=== PATIENT | male | born 1930 | race Asian ===

== ENCOUNTER 2018-11-14 16:02 | Inpatient (IN) | payer BC ==
[2018-11-14 16:32] LABS: ADD MAN DIFF? NO
[2018-11-14 16:34] LABS: WHITE BLOOD COUNT 5.2 10^3/ul (4.8-10.8)
[2018-11-14 16:34] LABS: BASOPHILS % 0.8 % (0.0-2.0); EOSINOPHILS # 0.2 10^3/ul (0.0-0.5); EOSINOPHILS % 3.3 % (0.0-7.0); HEMATOCRIT 34.3 % (42.0-52.0); HEMOGLOBIN 10.7 g/dl (14.0-18.0); MEAN CORPUSCULAR HEMOGLOBIN 23.4 pg (29.0-33.0); MEAN CORPUSCULAR HGB CONC 31.2 g/dl (32.0-37.0); MEAN CORPUSCULAR VOLUME 75.1 fl (82.0-101.0); MEAN PLATELET VOLUME 9.5 fl (7.4-10.4); MONOCYTE # 0.5 10^3/ul (0.3-0.9); MONOCYTES % 8.9 % (0.0-11.0); NEUTROPHIL # 3.5 10^3/ul (1.6-7.5); NEUTROPHILS % 67.6 % (39.0-77.0); PLATELET COUNT 291 10^3/UL (140-415); RED BLOOD COUNT 4.57 10^6/ul (4.70-6.10)
[2018-11-14 16:54] LABS: ANION GAP 6 (5-13); BLOOD UREA NITROGEN 16 mg/dl (7-20); CALCIUM 9.7 mg/dl (8.4-10.2); CARBON DIOXIDE 31 mmol/L (21-31); CHLORIDE 102 mmol/L (97-110); CREATININE 0.97 mg/dl (0.61-1.24); GLUCOSE 211 mg/dl (70-220); POTASSIUM 4.3 mmol/L (3.5-5.1); SODIUM 139 mmol/L (135-144)
[2018-11-14 16:56] LABS: ETHANOL < 10.0 mg/dl (0-0)
[2018-11-14 17:06] LABS: TROPONIN-I 0.054 ng/ml (0.000-0.120)
[2018-11-14 17:08] LABS: INR 0.97
[2018-11-14] MEDS: ASPIRIN 325 MG TAB PO (18:44)
[2018-11-14] MEDS ORDERED: ACETAMINOPHEN 325 MG TAB PO ×2 (19:00→19:30)
[2018-11-14] MEDS ORDERED: ONDANSETRON 4 MG INJ IV ×2 (19:00→19:30)
[2018-11-14] MEDS ORDERED: SENNA TAB PO (19:30)
[2018-11-14] MEDS ORDERED: NACL 0.9% 3 ML SYG IV (19:30)
[2018-11-14] MEDS ORDERED: DEXTROSE 50% 50 ML SYRINGE IV ×2 (20:30)
[2018-11-14] MEDS ORDERED: GLUCOSE GEL 15 GRAM TUBE PO ×2 (20:30)
[2018-11-14] MEDS ORDERED: GLUCOSE GEL 15 GRAM TUBE BUCCAL (20:30)
[2018-11-14] MEDS ORDERED: GLUCAGON 1 MG INJ IM (20:30)
[2018-11-14] MEDS: ACCU-CHEK XX (21:00)
[2018-11-14] MEDS: DORZOLAMIDE/TIMOLOL 10 ML OPH BOTH EYES (21:52)
[2018-11-14] MEDS: ATORVASTATIN 20 MG TAB PO (21:52)
[2018-11-14] MEDS: hydrALAzine 20 MG INJ IV (21:52)
[2018-11-14 22:53] LABS: TROPONIN-I 0.064 ng/ml (0.000-0.120)
[2018-11-15] MEDS: PANTOPRAZOLE (EC) 40 MG TAB PO (05:25)
[2018-11-15 05:53] LABS: ADD MAN DIFF? NO
[2018-11-15 06:01] LABS: BASOPHIL # 0.1 10^3/ul (0.0-0.1); BASOPHILS % 0.8 % (0.0-2.0); EOSINOPHILS # 0.2 10^3/ul (0.0-0.5); EOSINOPHILS % 2.8 % (0.0-7.0); HEMATOCRIT 33.5 % (42.0-52.0); HEMOGLOBIN 10.7 g/dl (14.0-18.0); LYMPHOCYTES # 1.2 10^3/ul (0.8-2.9); LYMPHOCYTES % 19.3 % (15.0-51.0); MEAN CORPUSCULAR HEMOGLOBIN 23.5 pg (29.0-33.0); MEAN CORPUSCULAR HGB CONC 31.9 g/dl (32.0-37.0); MEAN CORPUSCULAR VOLUME 73.5 fl (82.0-101.0); MEAN PLATELET VOLUME 9.7 fl (7.4-10.4); MONOCYTE # 0.5 10^3/ul (0.3-0.9); MONOCYTES % 8.7 % (0.0-11.0); NEUTROPHIL # 4.1 10^3/ul (1.6-7.5); NEUTROPHILS % 68.1 % (39.0-77.0); PLATELET COUNT 272 10^3/UL (140-415); RED BLOOD COUNT 4.56 10^6/ul (4.70-6.10); RED CELL DISTRIBUTION WIDTH 17.2 % (11.5-14.5)
[2018-11-15 06:34] LABS: ALANINE AMINOTRANSFERASE 24 IU/L (13-69); ALBUMIN 3.7 g/dl (3.3-4.9); ALBUMIN/GLOBULIN RATIO 1.48; ALKALINE PHOSPHATASE 91 IU/L (42-121); ANION GAP 8 (5-13); ASPARTATE AMINO TRANSFERASE 18 IU/L (15-46); BILIRUBIN,INDIRECT 0.3 mg/dl (0-1.1); BILIRUBIN,TOTAL 0.3 mg/dl (0.2-1.3); BLOOD UREA NITROGEN 17 mg/dl (7-20); CALCIUM 9.5 mg/dl (8.4-10.2); CARBON DIOXIDE 33 mmol/L (21-31); CHLORIDE 102 mmol/L (97-110); CHOL/HDL RATIO 3.3 RATIO; CHOLESTEROL 163 mg/dl (100-200); CREATININE 0.92 mg/dl (0.61-1.24); GLUCOSE 224 mg/dl (70-220); HDL CHOLESTEROL 48 mg/dl (31-75); LDL CHOLESTEROL,CALCULATED 83 mg/dl; PHOSPHORUS 3.6 mg/dl (2.5-4.9); POTASSIUM 4.1 mmol/L (3.5-5.1); SODIUM 143 mmol/L (135-144); TOTAL PROTEIN 6.2 g/dl (6.1-8.1); TRIGLYCERIDES 161 mg/dl (0-149)
[2018-11-15 06:34] LABS: TROPONIN-I 0.065 ng/ml (0.000-0.120)
[2018-11-15 06:35] LABS: ADD UMIC YES; UR ASCORBIC ACID NEGATIVE (NEGATIVE); UR BILIRUBIN (Dip) NEGATIVE (NEGATIVE); UR BLOOD (Dip) 1+ mg/dL (NEGATIVE); UR CLARITY CLEAR (CLEAR); UR COLOR YELLOW (YELLOW); UR GLUCOSE (Dip) 1+ mg/dL (NEGATIVE); UR KETONES (Dip) NEGATIVE (NEGATIVE); UR LEUKOCYTE ESTERASE (Dip) NEGATIVE Leu/ul (NEGATIVE); UR NITRITE (Dip) NEGATIVE (NEGATIVE); UR RBC 1 /HPF (0-5); UR TOTAL PROTEIN (Dip) NEGATIVE (NEGATIVE); UR UROBILINOGEN (Dip) NEGATIVE (NEGATIVE); UR WBC 0 /HPF (0-5)
[2018-11-15 07:02] LABS: AMPHETAMINE/METHAMPHETAMINE Negative (NEGATIVE); BARBITURATES Negative (NEGATIVE); BENZODIAZEPINES Negative (NEGATIVE); CANNABINOIDS Negative (NEGATIVE); COCAINE Negative (NEGATIVE); OPIATES Negative (NEGATIVE)
[2018-11-15 07:08] LABS: HEMOGLOBIN A1C 9.9 % (0-5.9)
[2018-11-15] MEDS: ACCU-CHEK XX ×4 (07:40→21:00)
[2018-11-15] MEDS: metFORMIN 500 MG TAB PO ×2 (07:55→17:18)
[2018-11-15] MEDS: CITALOPRAM 20 MG TAB PO (08:08)
[2018-11-15] MEDS: METOPROLOL (XL) 100 MG TAB PO (08:09)
[2018-11-15] MEDS: TRIAMTERENE/HCTZ (37.5/25) TAB PO (08:10)
[2018-11-15] MEDS: DORZOLAMIDE/TIMOLOL 10 ML OPH BOTH EYES ×2 (08:11→22:24)
[2018-11-15] MEDS: BRIMONIDINE 0.1% 5 ML OPH BOTH EYES (08:11)
[2018-11-15] MEDS: DONEPEZIL 5 MG TAB PO (13:54)
[2018-11-15] MEDS: MEMANTINE 5 MG TAB PO (13:54)
[2018-11-15 17:20] LABS: IRON 29 ug/dl (35-150)
[2018-11-15 17:29] LABS: % IRON SATURATION 8 % SAT (22-52); TOTAL IRON BINDING CAPACITY 379 ug/dl (241-421)
[2018-11-15] MEDS: ATORVASTATIN 20 MG TAB PO (22:23)
[2018-11-16] MEDS: PANTOPRAZOLE (EC) 40 MG TAB PO (05:38)
[2018-11-16] MEDS: ACCU-CHEK XX ×4 (07:51→21:00)
[2018-11-16] MEDS: metFORMIN 500 MG TAB PO ×2 (07:53→17:04)
[2018-11-16] MEDS: MEMANTINE 5 MG TAB PO (08:10)
[2018-11-16] MEDS: DONEPEZIL 5 MG TAB PO (08:10)
[2018-11-16] MEDS: CITALOPRAM 20 MG TAB PO (08:11)
[2018-11-16] MEDS: DORZOLAMIDE/TIMOLOL 10 ML OPH BOTH EYES ×2 (08:12→20:59)
[2018-11-16] MEDS: BRIMONIDINE 0.1% 5 ML OPH BOTH EYES (08:12)
[2018-11-16] MEDS: METOPROLOL (XL) 100 MG TAB PO (08:14)
[2018-11-16] MEDS: TRIAMTERENE/HCTZ (37.5/25) TAB PO (08:14)
[2018-11-16] MEDS: INSULIN GLARGINE [LANTus] (100 UNITS/ML) SYG SC (12:06)
[2018-11-16] MEDS: ATORVASTATIN 20 MG TAB PO (20:59)
[2018-11-17] MEDS: PANTOPRAZOLE (EC) 40 MG TAB PO (05:22)
[2018-11-17] MEDS: ACCU-CHEK XX ×4 (07:31→19:59)
[2018-11-17] MEDS: metFORMIN 500 MG TAB PO ×2 (07:32→17:10)
[2018-11-17] MEDS: INSULIN GLARGINE [LANTus] (100 UNITS/ML) SYG SC (07:37)
[2018-11-17] MEDS: BRIMONIDINE 0.1% 5 ML OPH BOTH EYES (08:24)
[2018-11-17] MEDS: DORZOLAMIDE/TIMOLOL 10 ML OPH BOTH EYES ×2 (08:25→20:00)
[2018-11-17] MEDS: METOPROLOL (XL) 100 MG TAB PO (08:25)
[2018-11-17] MEDS: TRIAMTERENE/HCTZ (37.5/25) TAB PO (08:26)
[2018-11-17] MEDS: CITALOPRAM 20 MG TAB PO (08:26)
[2018-11-17] MEDS: DONEPEZIL 5 MG TAB PO (08:26)
[2018-11-17] MEDS: MEMANTINE 5 MG TAB PO (08:26)
[2018-11-17] MEDS: ATORVASTATIN 20 MG TAB PO (20:00)
[2018-11-18] MEDS: PANTOPRAZOLE (EC) 40 MG TAB PO (05:29)
[2018-11-18] MEDS: ACCU-CHEK XX ×4 (07:00→22:05)
[2018-11-18] MEDS: TRIAMTERENE/HCTZ (37.5/25) TAB PO (08:55)
[2018-11-18] MEDS: DONEPEZIL 5 MG TAB PO (08:56)
[2018-11-18] MEDS: MEMANTINE 5 MG TAB PO (08:56)
[2018-11-18] MEDS: CITALOPRAM 20 MG TAB PO (08:56)
[2018-11-18] MEDS: METOPROLOL (XL) 100 MG TAB PO (08:56)
[2018-11-18] MEDS: metFORMIN 500 MG TAB PO ×2 (08:57→17:36)
[2018-11-18] MEDS: DORZOLAMIDE/TIMOLOL 10 ML OPH BOTH EYES ×2 (09:24→22:05)
[2018-11-18] MEDS: INSULIN GLARGINE [LANTus] (100 UNITS/ML) SYG SC (09:24)
[2018-11-18] MEDS: BRIMONIDINE 0.1% 5 ML OPH BOTH EYES (09:24)
[2018-11-18] MEDS: ATORVASTATIN 20 MG TAB PO (22:05)
[2018-11-19] MEDS: PANTOPRAZOLE (EC) 40 MG TAB PO (05:29)
[2018-11-19] MEDS: ACCU-CHEK XX ×4 (07:00→20:04)
[2018-11-19] MEDS: metFORMIN 500 MG TAB PO ×2 (09:02→18:00)
[2018-11-19] MEDS: TRIAMTERENE/HCTZ (37.5/25) TAB PO (09:03)
[2018-11-19] MEDS: DORZOLAMIDE/TIMOLOL 10 ML OPH BOTH EYES ×2 (09:03→20:04)
[2018-11-19] MEDS: BRIMONIDINE 0.1% 5 ML OPH BOTH EYES (09:03)
[2018-11-19] MEDS: INSULIN GLARGINE [LANTus] (100 UNITS/ML) SYG SC (09:06)
[2018-11-19] MEDS: DONEPEZIL 5 MG TAB PO (10:59)
[2018-11-19] MEDS: MEMANTINE 5 MG TAB PO (10:59)
[2018-11-19] MEDS: CITALOPRAM 20 MG TAB PO (10:59)
[2018-11-19] MEDS: METOPROLOL (XL) 100 MG TAB PO (11:00)
[2018-11-19] MEDS: ATORVASTATIN 20 MG TAB PO (20:04)
[2018-11-20] MEDS: PANTOPRAZOLE (EC) 40 MG TAB PO (06:10)
[2018-11-20] MEDS: ACCU-CHEK XX ×4 (07:00→21:02)
[2018-11-20] MEDS: CITALOPRAM 20 MG TAB PO (08:33)
[2018-11-20] MEDS: metFORMIN 500 MG TAB PO ×2 (08:33→18:04)
[2018-11-20] MEDS: BRIMONIDINE 0.1% 5 ML OPH BOTH EYES (08:34)
[2018-11-20] MEDS: DORZOLAMIDE/TIMOLOL 10 ML OPH BOTH EYES ×2 (08:34→21:04)
[2018-11-20] MEDS: MEMANTINE 5 MG TAB PO (08:34)
[2018-11-20] MEDS: INSULIN GLARGINE [LANTus] (100 UNITS/ML) SYG SC (08:35)
[2018-11-20] MEDS: TRIAMTERENE/HCTZ (37.5/25) TAB PO (09:59)
[2018-11-20] MEDS: DONEPEZIL 5 MG TAB PO (10:00)
[2018-11-20] MEDS: ATORVASTATIN 20 MG TAB PO (21:02)
[2018-11-21] MEDS: PANTOPRAZOLE (EC) 40 MG TAB PO (05:58)
[2018-11-21] MEDS: ACCU-CHEK XX ×2 (07:00→11:30)
[2018-11-21] MEDS: DORZOLAMIDE/TIMOLOL 10 ML OPH BOTH EYES (08:37)
[2018-11-21] MEDS: BRIMONIDINE 0.1% 5 ML OPH BOTH EYES (08:37)
[2018-11-21] MEDS: MEMANTINE 5 MG TAB PO (08:38)
[2018-11-21] MEDS: metFORMIN 500 MG TAB PO (08:38)
[2018-11-21] MEDS: DONEPEZIL 5 MG TAB PO (08:38)
[2018-11-21] MEDS: CITALOPRAM 20 MG TAB PO (08:38)
[2018-11-21] MEDS: LOSARTAN 25 MG TAB PO (08:39)
[2018-11-21] MEDS: INSULIN GLARGINE [LANTus] (100 UNITS/ML) SYG SC (08:40)
== END 2018-11-21 15:00 | DRG 884 ==
LOC: E/R 16:02 → 2NE 11-18 23:32 → 6WM 18:46
DX: F03.90 Unspecified dementia, unspecified severity, without behavioral disturbance, psychotic disturbance, mood disturbance, and anxiety (principal); I12.9 Hypertensive chronic kidney disease with stage 1 through stage 4 chronic kidney disease, or unspecified chronic kidney disease; E11.22 Type 2 diabetes mellitus with diabetic chronic kidney disease; N18.3 Chronic kidney disease, stage 3 (moderate); N39.41 Urge incontinence; Z86.73 Personal history of transient ischemic attack (TIA), and cerebral infarction without residual deficits; Z91.81 History of falling; R32 Unspecified urinary incontinence; R13.10 Dysphagia, unspecified
CPT/HCPCS: 70450; 70553; 71045; 72125; 74230; 76775; 80048; 80053; 80061; 80307; 81001; 82962; 83036; 83540; 83735; 84100; 84443; 84484; 85025; 85610; 85730; 86850; 86900; 86901; 92610; 92611; 93005; 97116; 97161; 97530; 99285-25